=== PATIENT | female | born 1965 | race Two or more races ===

== ENCOUNTER 2019-09-02 14:15 | Inpatient (IN) | payer OTHER ==
[~2019-09-02] VITALS: Ht 154.9 cm; Wt 68.0 kg
[2019-09-02] MEDS ORDERED: CRESTOR20 MG PO (15:51)
[2019-09-02] MEDS ORDERED: LEVO-T25 MCG PO (15:51)
[2019-09-02] MEDS ORDERED: ZOLPID PO (15:52)
[2019-09-07] MEDS ORDERED: AMBIEN10 MG PO (15:58)
== END 2019-09-14 14:50 | disposition home or self-care (01) | DRG 330 ==
LOC: O/R 09-07 08:38 → SURH 09-07 21:14
PROVIDERS: ADMIT Colon & Rectal Surgery; ATTEND Colon & Rectal Surgery
PROC: 07BC4ZX Excision of Pelvis Lymphatic, Percutaneous Endoscopic Approach, Diagnostic (ICD-10-PCS; 2019-09-07)
PROC: 0DTL4ZZ Resection of Transverse Colon, Percutaneous Endoscopic Approach (ICD-10-PCS; 2019-09-07)
PROC: 0DJD8ZZ Inspection of Lower Intestinal Tract, Via Natural or Artificial Opening Endoscopic (ICD-10-PCS; 2019-09-07)
PROC: 0DTF4ZZ Resection of Right Large Intestine, Percutaneous Endoscopic Approach (ICD-10-PCS; principal; 2019-09-07 19:00)
PROC: 02HV33Z Insertion of Infusion Device into Superior Vena Cava, Percutaneous Approach (ICD-10-PCS; 2019-09-10)
PROC: 3E0436Z Introduction of Nutritional Substance into Central Vein, Percutaneous Approach (ICD-10-PCS; 2019-09-10)
DX: C18.2 Malignant neoplasm of ascending colon (principal); C18.4 Malignant neoplasm of transverse colon; C77.5 Secondary and unspecified malignant neoplasm of intrapelvic lymph nodes; K56.7 Ileus, unspecified; J95.89 Other postprocedural complications and disorders of respiratory system, not elsewhere classified; J98.11 Atelectasis; K91.0 Vomiting following gastrointestinal surgery; D64.9 Anemia, unspecified; E03.8 Other specified hypothyroidism; E78.00 Pure hypercholesterolemia, unspecified

== ENCOUNTER 2019-11-24 06:00 | Day surgery (SDC) | payer OTHER ==
[~2019-11-24 06:00] MED LIST: AMBIEN10 MG PO; CRESTOR20 MG PO; LEVO-T25 MCG PO; ZOLPID PO
== END 2019-11-24 12:30 | disposition home or self-care (01) ==
LOC: CIR.AMB 06:00
PROVIDERS: ATTEND Colon & Rectal Surgery
DX: C18.4 Malignant neoplasm of transverse colon (principal)
CPT/HCPCS: 36561; C1751

== ENCOUNTER 2020-10-06 09:04 | Day surgery (SDC) | payer OTHER | END 2020-10-06 14:45 | disposition home or self-care (01) | LOC: AMB-ENDOS 09:04 | PROVIDERS: ATTEND Colon & Rectal Surgery | DX: K62.89 Other specified diseases of anus and rectum (principal); K64.2 Third degree hemorrhoids; Z20.822 Contact with and (suspected) exposure to COVID-19 ==

== ENCOUNTER 2023-09-10 05:28 | Day surgery (SDC) | payer OTHER ==
[2023-09-10] MEDS ORDERED: CEFAZOLIN SODIUM 1,000 MG VIAL ONE (06:35)
[2023-09-10] MEDS ORDERED: BUPIVACAINE HCL/MPF 0.5% 30ML VIAL ONE (06:59)
[2023-09-10] MEDS ORDERED: LIDOCAINE HCL 1%/EPINEPHRINE 20ML VIAL IJ ONE (06:59)
== END 2023-09-10 10:35 | disposition home or self-care (01) ==
LOC: CIR.AMB 05:28
PROVIDERS: ATTEND Colon & Rectal Surgery
DX: C18.4 Malignant neoplasm of transverse colon (principal); Z88.4 Allergy status to anesthetic agent; Z88.8 Allergy status to other drugs, medicaments and biological substances; E03.9 Hypothyroidism, unspecified; F41.9 Anxiety disorder, unspecified; Z85.9 Personal history of malignant neoplasm, unspecified; H52.209 Unspecified astigmatism, unspecified eye